=== PATIENT | male | born 1995 | race Caucasian/White ===

== ENCOUNTER 2019-04-10 20:57 | Emergency (ER) | payer MEDICAID ==
[~2019-04-10] VITALS: Ht 165.1 cm; Wt 62.1 kg
[2019-04-10 21:14] VITALS: Ht 165.1 cm; Wt 62.1 kg
[2019-04-10 23:41] VITALS: BP 128/74
== END 2019-04-10 23:41 | disposition home or self-care (01) ==
LOC: ED 20:57
DX: J18.9 Pneumonia, unspecified organism (principal)
CPT/HCPCS: J0696